=== PATIENT | female | born 1980 | race Caucasian/White ===

== ENCOUNTER 2016-12-31 19:07 | Emergency (ER) | payer MEDICARE, OTHER | END 2016-12-31 20:27 | disposition home or self-care (01) | LOC: ER1 19:07 | DX: S63.501A Unspecified sprain of right wrist, initial encounter (principal); S00.83XA Contusion of other part of head, initial encounter; Y04.2XXA Assault by strike against or bumped into by another person, initial encounter; Z88.5 Allergy status to narcotic agent; Y92.009 Unspecified place in unspecified non-institutional (private) residence as the place of occurrence of the external cause; Y99.8 Other external cause status; Y07.499 Other family member, perpetrator of maltreatment and neglect | CPT/HCPCS: 70450; 71101; 73110; 73130; 99283 ==